=== PATIENT | male | born 1945 | race Two or more races ===

== ENCOUNTER 2022-03-09 04:20 | Day surgery (SDC) | payer MEDICARE ==
[2022-03-08 10:41] VITALS: BMI 35.5
[2022-03-09] MEDS ORDERED: BUPIVACAINE HCL/PF 0.5% (5MG/ML) 10 ML VIAL ONE (07:31)
[2022-03-09] MEDS ORDERED: SUCCINYLCHOLINE CHLORIDE 200 MG/10 ML SYRINGE ONE (12:36)
[2022-03-09] MEDS ORDERED: BUPIVACAINE HCL/PF 0.25% (2.5MG/ML) 10 ML VIAL ONE (13:00)
[2022-03-09] MEDS ORDERED: BACITRACIN 15 GM TUBE TOPICAL OINTMENT ONE (13:00)
[2022-03-09] MEDS ORDERED: MIDAZOLAM HCL 2 MG/2 ML SINGLE DOSE VIAL ONE ×2 (14:05→14:36)
[2022-03-09] MEDS ORDERED: ceFAZolin SODIUM 1 GM VIAL IVPB ONE (14:15)
[2022-03-09] MEDS ORDERED: oxyCODONE HCL 5 MG TABLET PO PRN (15:12)
[2022-03-09] MEDS ORDERED: DEXTROSE 5%-0.45% SALINE 1,000 ML IV SCH (15:15)
[2022-03-09] MEDS ORDERED: ONDANSETRON 4 MG/2 ML VIAL IVPUSH PRN (15:25)
[2022-03-09] MEDS ORDERED: LACTATED RINGERS SOLUTION 1,000 ML IV SCH (15:30)
[2022-03-09 16:06] VITALS: TEMP 97.7
[2022-03-09 19:10] VITALS: BP 127/75; PULSE 95; RESP 20
== END 2022-03-09 19:05 | disposition home or self-care (01) ==
LOC: JASU-SURG 04:20
PROVIDERS: ATTEND Urology
PROC: 0VTTXZZ Resection of Prepuce, External Approach (ICD-10-PCS; principal; 2022-03-09 14:00)
DX: N47.1 Phimosis (principal); N48.1 Balanitis
CPT/HCPCS: 82962; 88304-TC; 94760